=== PATIENT | female | born 1950 | race Caucasian/White ===

== ENCOUNTER 2024-08-31 19:40 | Emergency (ER) | payer MEDICARE, MEDICAID ==
[~2024-08-31] VITALS: Ht 175.3 cm; Wt 90.9 kg
[2024-08-31 19:46] VITALS: TEMP 98.5
--- NOTE | 2024-08-31 19:58 | Physician Documentation ---
History of Present Illness ~ Chief Complaint: Mechanical Fall Stated Complaint: FALL Time Seen by MD: 19:58 OK to notify your PCP?: Yes Source: patient, RN/MD, RN notes reviewed, old records Mode of Arrival: POV Exam Limitations: no limitations HPI 74 year old female presents to the emergency room for complaint of a fall that happened 45 minutes prior to arrival. She states that she is currently waiting for a hip replacement, but she went to walk her dog to the mailbox and while using her cane she had fallen. She states that she landed on her left side hitting her head. Patient denies any loss of consciousness, with no headache, vision loss, neck pain or back pain out of normal limits. Patient states she is on bloodthinners for her Afib. Tetanus within 5 Years?: No Medication Reconciliation Allergies: Coded Allergies: No Known Allergies (Unverified , 08/31/24) Scheduled Cephalexin*Monohydrate* (Keflex*), 1 TAB PO Q8H Past Medical History Past Medical History: Atrial Fibrillation, Chronic Back Pain Past Surgical History: no surgical history Review of Systems All Other Systems at this time: Reviewed and Negative ROS As stated above in the HPI, otherwise all systems are reviewed and negative. Physical Exam Vital Signs: RN Vital Signs have been reviewed: Yes, Temperature: 98.5, Source: Oral, Heart Rate: 82, Respiratory Rate: 13, BP: 116/60, Pulse Oximetry: 97, Weight: 90.910 Pulse Oximetry Reflects: adequate oxygenation Physical Exam General: The patient is well developed, well nourished, nontoxic appearing and is in no acute distress. Skin: [place], warm and dry with no rashes. HEENT: Abrasion to the left scalp. Head was normocephalic. Eyes - pupils equal, round, reactive to light and accommodation. Extraocular movements were intact. Conjunctivae were nonicteric. Ears - bilateral tympanic membranes were normal. The mouth and oropharynx were clear with moist mucous membranes. There were no pharyngeal exudates or erythema. Neck: Supple and nontender. There was no jugular venous distention, lymphadenopathy, thyromegaly or masses. Chest: Clear to auscultation bilaterally without wheezes, rales or rhonchi. No accessory muscle use. No dullness to percussion. Heart: Rate regular and rhythmic. S1, S2. No murmurs. Palpation of the chest wall was normal. No rubs or thrills. Abdomen: Soft, nontender and nondistended. Positive bowel sounds. No guarding or rebound. No hepatosplenomegaly or palpable masses. Extremities: Abrasion to left arm and upper extremity. No cyanosis, clubbing or edema. The patient moves all extremities. Pulses were equal and symmetric. Neurologic: Motor sensory grossly intact Psychologic: The patient was oriented to person, place and time. The patient demonstrated appropriate judgement and insight. Progress Results/Orders Reviewed/noted all lab results: Yes Results/Orders Orders - ABDULLAHI GERMAIN MD Ct Head (08/31/24 20:11) Wound Care Orders (08/31/24 20:12) Completed Orders - ABDULLAHI GERMAIN MD Ct Head (08/31/24 20:11) Tetanus/Pertuss/Diph Acell/Pf (Boostrix (08/31/24 20:15) Cephalexin Capsule (Keflex Capsule) (08/31/24 21:10) Vital Signs 08/31/24 08/31/24 08/31/24 08/31/24 19:46 19:56 20:24 20:24 Temp 98.5 Pulse 80 82 81 Resp 16 13 16 16 B/P (MAP) 116/60 (78) 122/65 (84) Pulse Ox 97 97 97 08/31/24 21:32 Pulse 66 Resp 16 B/P (MAP) 123/75 Pulse Ox 95 Re-Evaluation Re-Evaluation : Re-Evaluation: Improved Progress Patient was seen and examined. Patient is given reassurance. The patient fell after walking her dog at some injuries to her extremities. Otherwise she appears well she did have a headache and a contusion so CT scan of the head was ordered was reassuring and within normal limits. Her wounds were cleaned nothing to repair. She received antibiotics because of some foreign bodies that was seen. She received as a prescription for the same. Otherwise no pain medications were prescribed she is doing well able to ambulate without any difficulty and ultimately was discharged home. Patient was on a monitor. Continuous talent acquisition specialist interpretation shows normal sinus rhythm heart rate 80s, no ectopy, normal, my interpretation. Pulse oximetry monitor interpretation shows normal oxygenation at 98% room air, normal, my interpretation. EKG/XRAY/CT/US/VASC/MRI CT : Impression CT CT HEAD INDICATION: trauma blood thinners for afib COMPARISON: None available TECHNIQUE: CT of the head without intravenous contrast. RADIATION DOSE: CTDIvol: mGy, DLP: mGy*cm FINDINGS: There is no evidence of intracranial hemorrhage, infarct, extra-axial collection, mass effect, midline shift, herniation or hydrocephalus. Mild chronic white matter microvascular ischemic change. The ventricles, sulci and cisterns are age appropriate. Visualized paranasal sinuses and mastoid air cells are clear. Scalp contusion in left frontal region. No calvarial abnormality/fracture. IMPRESSION: No hemorrhage or other acute intracranial abnormality. Mild chronic microvascular ischemic change. Scalp contusion in left frontal region. No calvarial fracture. Electronically Signed by:CRISTOFER KHAN MD Date & Time: 08/31/242045 Medical Decision Making Additional info obtained from: old records Differential Dx:Considerations: Include: Closed head injury, Cardiac injury, Fracture(s), Intraabdominal injury, Pneumothorax, Cerebral contusion, Pulmonary contusion, Spine injury, Tracheal injury, Urological injury, Vascular injury, Abrasion(s), Contusion(s), Foreign body(s), Hematoma(s), Laceration(s), Encephalopathy, Other Departure Time of Disposition: 21:11 Disposition: 01 HOME / SELF CARE / HOMELESS Impression: Primary Impression: Fall Qualified Codes: W19.XXXA - Unspecified fall, initial encounter Additional Impressions: Scalp contusion Qualified Codes: S00.03XA - Contusion of scalp, initial encounter Abrasion of knee, left Qualified Codes: S80.212A - Abrasion, left knee, initial encounter Superficial skin tears Condition: Stable Discharge Instructions: Fall Prevention in the Home, Adult, [id number] Referrals: NO PRIMARY CARE PROVIDER (PCP) Prescriptions Cephalexin*Monohydrate* (Keflex*) 250 Mg Capsule 1 TAB PO Q8H for 7 Days, #21 TAB Prov: ABDULLAHI GERMAIN MD 08/31/24 Education Educated: Patient, Family Educated regarding: diagnosis, treatment, prognosis Signature Scribe Signature: Scribed for Abdullahi Germain MD by Julio César Linder . 08/31/24 20:37 Attestation: The note accurately reflects work and decisions made by me.Abdullahi Germain MD 08/31/24 19:58 ABDULLAHI GERMAIN MD Aug 31, 2024 19:58 JULIO CÉSAR BEY Aug 31, 2024 20:34
[2024-08-31] MEDS: TETanus/Pertussis (Acell)/Diphther VAC/PF (Tdap-Adult) 0.5ml syringe IMVAC ONE (20:22)
--- NOTE | 2024-08-31 20:48 | RADIOLOGY REPORT ---
CT CT HEAD INDICATION: trauma blood thinners for afib COMPARISON: None available TECHNIQUE: CT of the head without intravenous contrast. RADIATION DOSE: CTDIvol: mGy, DLP: mGy*cm FINDINGS: There is no evidence of intracranial hemorrhage, infarct, extra-axial collection, mass effect, midli ne shift, herniation or hydrocephalus. Mild chronic white matter microvascular ischemic change. The v entricles, sulci and cisterns are age appropriate. Visualized paranasal sinuses and mastoid air cells are clear. Scalp contusion in left frontal region. No calvarial abnormality/fracture. IMPRESSION: No hemorrhage or other acute intracranial abnormality. Mild chronic microvascular ischemic change. Scalp contusion in left frontal region. No calvarial fracture.
[2024-08-31] MEDS ORDERED: CEPH250T PO (21:19)
[2024-08-31 21:32] VITALS: BP 123/75; PULSE 66; RESP 16; O2SAT 95
== END 2024-08-31 21:35 | disposition home or self-care (01) ==
LOC: ER 19:41
DX: S00.03XA Contusion of scalp, initial encounter (principal); S80.212A Abrasion, left knee, initial encounter; I48.91 Unspecified atrial fibrillation; W01.0XXA Fall on same level from slipping, tripping and stumbling without subsequent striking against object, initial encounter; Y93.89 Activity, other specified; Y92.89 Other specified places as the place of occurrence of the external cause; Y99.8 Other external cause status
CPT/HCPCS: 70450; 90715; 99285; A6402; A6446; G0008; J7030; 90471; A6449

== ENCOUNTER 2024-10-06 20:53 | Emergency (ER) | payer MEDICARE, MEDICAID ==
[~2024-10-06] VITALS: Ht 175.3 cm; Wt 90.9 kg
[2024-10-06 20:56] VITALS: BP 139/70; PULSE 96; O2SAT 98
[2024-10-06 21:16] VITALS: RESP 16
--- NOTE | 2024-10-06 22:52 | Physician Documentation ---
History of Present Illness ~ Chief Complaint: Cold, cough & congestion Stated Complaint: COVID Time Seen by MD: 22:12 Source: patient Mode of Arrival: POV Exam Limitations: no limitations HPI Patient has past medical history significant for chronic back pain, depression, atrial fibrillation on anticoagulation presented secondary to complaints of overall feeling very poorly. She has had a sore throat, body aches, subjective fever, nausea and no vomiting starting this morning. No shortness a breath. No chest pain or pressure. Was asked, but otherwise denies review of systems. Medication Reconciliation Allergies: Coded Allergies: No Known Allergies (Unverified , 10/06/24) Past Medical History Past Medical History: Atrial Fibrillation, Chronic Back Pain Past Surgical History: no surgical history Review of Systems Constitutional: Reports: chills, fever Eyes: Reports: no symptoms reported ENT: Reports: no symptoms reported Respiratory: Reports: cough; Denies: shortness of breath Cardiovascular: Reports: irregular heart rate (History of AFib); Denies: chest pain, syncope, edema Gastrointestinal: Reports: nausea; Denies: abdominal pain, vomiting, diarrhea, constipated Neurological: Denies: dizziness, fainting Musculoskeletal: Reports: no symptoms reported Integumentary: Denies: rash Allergic/Immunologic: Reports: no symptoms reported Physical Exam Vital Signs: Temperature: 98.3, Source: Oral, Heart Rate: 96, Respiratory Rate: 16, BP: 139/70, Pulse Oximetry: 98, Weight: 90.910 Oxygen Flow Rate: 0 Pulse Oximetry Reflects: adequate oxygenation Physical Exam General: Awake, alert, oriented. No apparent distress. Neck: Supple. Normal range of motion. No JVD Respiratory: Lungs are clear to auscultation bilaterally. No respiratory distress. She is speaking in full sentences. Chest: Normal shape and size. No accessory muscle use. Cardiovascular: Irregularly irregular. Variable S1-S2. No murmur, gallop, rub. Gastrointestinal: Abdomen is soft. Nontender to palpation. Bowel sounds present. Extremities: No lower extremity edema, cyanosis or clubbing. Neurologic: Alert and oriented x4. Nonfocal Psychiatric: Normal mood and affect. Skin: Normal color. Warm and dry. Progress Results/Orders Results/Orders Vital Signs 10/06/24 10/06/24 10/06/24 20:56 21:16 22:58 Temp 98.3 98.3 Pulse 96 Resp 16 16 B/P (MAP) 139/70 Pulse Ox 98 O2 Flow Rate 0 Laboratory Tests Test 10/06/24 21:53 SARS-CoV-2 Antigen (Rapid) Positive *A Medical Decision Making Findings Patient presents with viral symptoms including body aches, sore throat, cough, subjective fever. Onset this morning. No shortness a breath. No high-risk features. She is not over the age of 75 and does not have high-risk medical condition so therefore Paxlovid was not prescribed. She is not hypoxic. She is afebrile. Tested positive for COVID-19. She was given instructions for supportive care. Differential Dx:Considerations: Include: Influenza, Otitis media, Pharyngitis- Streptoccal, Pharyngitis-Viral, Pneumonia, Sinusitis, URI Departure Time of Disposition: 22:52 Disposition: 01 HOME / SELF CARE / HOMELESS Impression: Primary Impression: COVID-19 Condition: Stable Discharge Instructions: Upper Respiratory Infection, Adult, [id number] Additional Instructions: COVID-19 test was positive. Recommend that you stay well hydrated. Rest. For cough me drink warm water with honey/lemon. Sore throat may be improved with gargling warm salt water. Get plenty of rest. Avoid contact/spread of COVID-19 with others. May take [id number] Tylenol/ibuprofen for minor pain/fever. Return for any increased shortness for breath, low oxygen saturation or any other concerns. Referrals: NO PRIMARY CARE PROVIDER (PCP) Education Educated: Patient Educated regarding: diagnosis, treatment, need for follow up Signature Scribe Signature: No scribe Attestation: The note accurately reflects work and decisions made by me.Brittany Bob - LETY 10/06/24 23:25 This note was created with the assistance of voice recognition software whereby errors in grammar, syntax, and/or spelling may have occurred despite active proofreading efforts by the author. Please do not hesitate to contact the provider for clarification or for questions regarding the content of this document. BRITTANY BOB NP Oct 06, 2024 22:52
[2024-10-06 22:58] VITALS: TEMP 98.3
== END 2024-10-06 23:00 | disposition home or self-care (01) ==
LOC: ER 20:53
DX: U07.1 COVID-19 (principal); J02.9 Acute pharyngitis, unspecified; R50.9 Fever, unspecified; I48.91 Unspecified atrial fibrillation; Z79.01 Long term (current) use of anticoagulants
CPT/HCPCS: 36415; 87811; 99283